=== PATIENT | male | born 1960 | race Hispanic/Latino ===

== ENCOUNTER 2017-04-11 23:00 | Observation (INO) | payer SELFPAY ==
[2017-04-11] MEDS ORDERED: Enoxaparin Sodium 100 MG/ML SYRINGE ONE (23:23)
[2017-04-11 23:39] LABS: #Basophils 0.1 thou/uL (0.0-0.2); #Eosinphils 0.3 thou/uL (0.0-0.7); #Lymphocytes 2.3 thou/uL (1.20-3.40); #Monocytes 0.6 thou/uL (0.11-0.59); #Neutrophils 4.8 thou/uL (1.40-6.50); %Basophils 0.8 % (0.0-1.0); %Eosinophils 3.4 % (0.0-10.0); %Lymphocytes 28.9 % (21.0-51.0); %Monocytes 7.8 % (0.0-10.0); Hematocrit 38.7 % (42.0-52.0); Mean Platelet Volume 6.9 fL (7.4-10.4); Red Blood Cell (RBC) Count 4.16 mill/uL (4.70-6.10)
[2017-04-12 00:03] LABS: ALT (SGPT) 17 U/L (8-55); AST (SGOT) 16 U/L (5-34); Alkaline Phosphatase 101 U/L (40-150); Anion Gap 14 mmol/L (10-20); BUN (Urea Nitrogen) 13 mg/dL (8.4-25.7); Bilirubin, Total 0.5 mg/dL (0.2-1.2); CK (CPK) 108 U/L (30-200); Calc. Creatinine Clearance 0 mL/min (70-130); Calcium 8.5 mg/dL (7.8-10.44); Carbon Dioxide 29 mmol/L (22-29); Chloride 102 mmol/L (98-107); Estimated GFR-MDRD 74; Globulin 3.1 g/dL (2.4-3.5)
[2017-04-12 00:05] LABS: Troponin I 0.013 ng/mL (< 0.028)
--- NOTE | 2017-04-12 00:52 | PDOC.EVN ---
Event Note - Event Note Event Note: [id number] H&P Dictated 1. AFIB New onset 2. HTN 3. Acute CHF PLAN: SEE ORDERS
[2017-04-12 01:20] VITALS: BMI 29.3
[2017-04-12 02:34] LABS: Troponin I 0.014 ng/mL (< 0.028)
[2017-04-12 05:31] LABS: Troponin I 0.024 ng/mL (< 0.028)
[2017-04-12] MEDS: Furosemide 40 MG/4 ML VIAL SLOW IVP SCH ×2 (05:47→14:26)
[2017-04-12] MEDS ORDERED: cloNIDine HCl 0.1 MG TAB PO SCH (08:00)
[2017-04-12] MEDS: Acetaminophen 500 MG TAB PO PRN (08:12)
--- NOTE | 2017-04-12 08:22 | HP ---
DATE OF ADMISSION: 04/12/2017 CHIEF COMPLAINT: Dyspnea. HISTORY OF PRESENT ILLNESS: Patient is a 57-year-old male with no significant past medical history, now came to the ER complaining of dyspnea. Patient is having dyspnea for the past 1 week with mini mal exertion, complains of bilateral lower extremity swelling. Denies any chest pain at present, bu t complaints of intermittent chest pain . Denies any radiation. Denies any fever, denies any chills, denies any nausea, denies any ordinary complaints of cough, denies any sputum production, de nies any dizziness, denies any diarrhea. PAST MEDICAL HISTORY: None. PAST SURGICAL HISTORY: None. SOCIAL HISTORY: Positive for smoking, denies alcohol, denies any drugs. FAMILY HISTORY: Denies any heart problems. REVIEW OF SYSTEMS: Constitutional: Denies any fever, denies any chills. Eyes: Denies any vision problems. Ears: Denies any hearing loss. Neck: Denies any neck pain. Cardiovascular System: Po sitive for chest pain. Respiratory System: Positive for cough. Cranial Nerve System: Denies sync ope, denies lightheadedness. Psychiatric: Denies anxiety. Integument: Denies any rash. Musculos keletal System: Positive for lower extremity edema. All other review of systems are reviewed and a re negative. PHYSICAL EXAMINATION: CONSTITUTIONAL/VITAL SIGNS: At the time of H\T\P performed, blood pressure is 140/65, afebrile, afe brile, pulse ox 97% on 2 liters. GENERAL: Patient appears comfortable. HEENT: Pupils are equal, round, and reactive. Anterior nares patent. Nose normal. Ears normal. Teeth intact. Tongue is moist. NECK: Supple, no JVD. CARDIOVASCULAR SYSTEM: S1, S2 present, irregular. No murmurs, no rubs, no gallops. RESPIRATORY SYSTEM: No wheezing, no rhonchi. Breath sounds bilaterally. Positive for crackles. GASTROINTESTINAL SYSTEM: Abdomen is soft, nontender, no guarding, no organomegaly, no masses felt. MUSCULOSKELETAL: Positive for edema. CRANIAL NERVE SYSTEM: Awake, follows commands. Speech clear. PSYCHIATRIC: Mood appropriate at this time. INTEGUMENT: No rashes seen. LABORATORY DATA: At the time of H\T\P performed, sodium 141, potassium 4.2, chloride 100, CO2 of 29 , BUN of 13, creatinine of 1.0, troponin 0.013, BNP 384. White count 8, hemoglobin 12.8, and platel et count 245. EKG: Positive for AFib. ASSESSMENT AND PLAN: The patient is 57-year-old male. 1. New onset atrial fibrillation. Plan to consult cardiology to evaluate the patient. Plan to cuate ck cardiac enzymes. Plan to monitor the patient closely. 2. Acute congestive heart failure exacerbation. Plan to check 2D echocardiogram. Plan to start th e patient on IV Lasix 40 mg b.i.d. We will monitor the patient. 3. Hypertension. Monitor blood pressure. Continue to monitor blood pressure and start blood press ure medications. 4. Nicotine abuse, counseling not to smoke. Case was discussed in detail with the patient and patient's also.
[2017-04-12] MEDS ORDERED: Aspirin 325 MG TAB PO SCH (09:00)
[2017-04-12] MEDS ORDERED: FLU VACC QS2017-18 36 mo. & older 0.5 ML SYRINGE IM ONE (09:00)
[2017-04-12] MEDS ORDERED: Metoprolol Tartrate 25 MG TAB PO SCH (09:00)
[2017-04-12 09:21] LABS: Hematocrit 41.8 % (42.0-52.0)
[2017-04-12] MEDS: Aspirin 81 mg Enteric Coated Tablet PO SCH (10:07)
[2017-04-12] MEDS: Enoxaparin Sodium 100 MG/ML SYRINGE SC SCH ×2 (10:18→19:33)
[2017-04-12] MEDS ORDERED: ALPRAZolam 0.25 MG TAB PO PRN (10:24)
--- NOTE | 2017-04-12 10:24 | PDOC.PN ---
- Subjective Encounter Start Date: 04/12/17 Encounter Start Time: 10:23 Subjective: reports feeling better. abdominal distension has much improved. -: no chest pain/SOB/leg swelling this morning - Objective MAR Reviewed: Yes Vital Signs & Weight: Vital Signs (12 hours) Temp Pulse Resp BP BP Pulse Ox 04/12/17 10:10 134/99 H 04/12/17 08:44 97.8 F 79 20 04/12/17 08:40 124/90 04/12/17 08:15 124/90 04/12/17 08:11 79 20 95 04/12/17 07:59 97.8 F 93 20 148/102 H 91 L 04/12/17 03:32 97.5 F L 102 H 21 H 146/95 H 92 L Weight Weight 216 lb 6.4 oz I&O: 04/11/17 04/12/17 04/13/17 06:59 06:59 06:59 Intake Total 364 Output Total 525 800 Balance -161 -800 Result Diagrams: 04/12/17 09:12 04/12/17 05:00 Additional Labs: Laboratory Tests 04/11/17 04/11/17 04/12/17 23:30 23:30 01:54 Troponin I 0.013 0.014 B-Natriuretic Peptide 384.7 H Triglycerides Cholesterol LDL Cholesterol, Calc HDL Cholesterol 04/12/17 04/12/17 05:00 05:00 Troponin I 0.024 B-Natriuretic Peptide Triglycerides 78 Cholesterol 140 LDL Cholesterol, Calc 88 HDL Cholesterol 36 Phys Exam - Physical Examination Constitutional: NAD HEENT: PERRLA, moist MMs, sclera anicteric, oral pharynx no lesions Neck: no nodes, no JVD, supple, full ROM Respiratory: no wheezing, no rales, no rhonchi, clear to auscultation bilateral Cardiovascular: no significant murmur, irregular Gastrointestinal: soft, non-tender, no distention, positive bowel sounds Musculoskeletal: no edema, pulses present Neurological: non-focal, normal sensation, moves all 4 limbs Psychiatric: normal affect, A&O x 3 Skin: no rash Dx/Plan (1) Acute CHF (congestive heart failure) Code(s): I50.9 - HEART FAILURE, UNSPECIFIED Status: Acute Qualifiers: Congestive heart failure type: unspecified congestive heart failure type Qualified Code(s): I50.9 - Heart failure, unspecified (2) New onset atrial fibrillation Code(s): I48.91 - UNSPECIFIED ATRIAL FIBRILLATION Status: Acute Comment: rate controlled (3) Tobacco abuse Code(s): Z72.0 - TOBACCO USE Status: Acute (4) Tobacco abuse counseling Code(s): Z71.6 - TOBACCO ABUSE COUNSELING Status: Chronic (5) HTN (hypertension) Code(s): I10 - ESSENTIAL (PRIMARY) HYPERTENSION Status: Acute Comment: Non complaint - Plan plan discussed w/ family, marriage and family social worker, out of bed/ambulate, DVT proph w/ lovenox Add BID lovenox for stroke prophylaxis.unknown cardiac status -: Add low dose BB for BP and HR control w parametrs. -: ECHO done ,results pending.cardiology to see later today -: cont diuresis. clinically better. monitor renal Fx. -: Add Nicotine patch * . Review of Systems - Review of Systems Constitutional: negative: Fever, Chills, Sweats, Weakness, Malaise, Other Respiratory: negative: Cough, Dry, Shortness of Breath, Hemoptysis, SOB with Excertion, Pleuritic Pain, Sputum, Wheezing Cardiovascular: negative: Chest Pain, Palpitations, Orthopnea, Paroxysmal Noc. Dyspnea, Edema, Light Headedness, Other Gastrointestinal: negative: Nausea, Vomiting, Abdominal Pain, Diarrhea, Constipation, Melena, Hematochezia, Other Genitourinary: negative: Dysuria, Frequency, Incontinence, Hematuria, Retention , Other Musculoskeletal: negative: Neck Pain, Shoulder Pain, Arm Pain, Back Pain, Hand Pain, Leg Pain, Foot Pain, Other Neurological: negative: Weakness, Numbness, Incoordination, Change in Speech, Confusion, Seizures, Other - Medications/Allergies Allergies/Adverse Reactions: Allergies Allergy/AdvReac Type Severity Reaction Status Date / Time bee pollen Allergy Verified 04/12/17 00:51 Medications: Current Medications Acetaminophen (Tylenol) 500 mg PO Q6H PRN PRN Reason: Headache/Fever or Pain Last Admin: 04/12/17 08:12 Dose: 500 mg Albuterol/Ipratropium (Duoneb) 3 ml NEB Q6H PRN PRN Reason: SOB &/or Wheezing Last Admin: 04/12/17 08:11 Dose: 3 ml Aspirin (Ecotrin) 81 mg PO DAILY [facility] Last Admin: 04/12/17 10:07 Dose: Not Given Enoxaparin Sodium (Lovenox) 100 mg SC 0900,2100 [facility] Last Admin: 04/12/17 10:18 Dose: 100 mg Furosemide (Lasix) 40 mg SLOW IVP 0600,1400 [facility] Last Admin: 04/12/17 05:47 Dose: 40 mg Metoprolol Tartrate (Lopressor) 12.5 mg PO BID [facility] Last Admin: 04/12/17 10:07 Dose: 12.5 mg
[2017-04-12] MEDS: Nicotine 14 MG PATCH TD SCH (11:39)
[2017-04-12] MEDS ORDERED: Digoxin 0.5 MG/2 ML AMP SLOW IVP SCH ×2 (12:45→19:00)
[2017-04-12] MEDS ORDERED: Sotalol HCl 80 MG TAB PO SCH ×2 (13:15→21:00)
--- NOTE | 2017-04-12 13:57 | EKG ---
Test Reason : AFIB Blood Pressure : / mmHG Vent. Rate : 101 BPM Atrial Rate : 107 BPM P-R Int : 000 ms QRS Dur : 084 ms QT Int : 374 ms P-R-T Axes : 000 038 068 degrees QTc Int : 484 ms Atrial fibrillation with rapid ventricular response Left ventricular hypertrophy Abnormal ECG Confirmed by JOHAN ORTEGA, CAMI Chen ([id number]), video editor DARRICK BRANDT ([id number]) on 04/12/2017 1:57:02 PM Referred By: Confirmed By:CAMI PRADO MD
--- NOTE | 2017-04-12 17:29 | CON ---
CARDIOLOGY CONSULTATION NOTE DATE OF CONSULTATION: 04/12/2017 INDICATION FOR CONSULTATION: A 57-year-old patient with new onset atrial fibrillation. HISTORY OF PRESENT ILLNESS: This is a 57-year-old gentleman who has had no previous significant car diac history except for some hypertension, noncompliance with medications and followup, presented to the emergency room complaining of shortness of breath for the last week or so, he noticed he has be en having lower extremity edema and shortness of breath. He has been having palpitations for at [facility] a year. He has not recently seen a physician. He had no significant chest discomfort. He had s ome abdominal fullness, but no significant chest pain was noted, mainly with the shortness of breath . He had no pulmonary or complaints, significant GI complaints that would be possible reflux. O therwise, he was doing quite well, but was concerned about the shortness of breath and lower extremi ty edema and the palpitations. In the emergency room, he was found to be in atrial fibrillation wit h rapid ventricular response. He was given aspirin, Lopressor, Lasix and Lovenox and we were asked to see him for the atrial fibrillation. PAST MEDICAL AND SURGICAL HISTORY: Unremarkable for any significant operations or illnesses. SOCIAL HISTORY: He continues to smoke a pack a day for 40-45 years and has continued to smoke until he was admitted. He has no alcohol use or illicit drug use. ALLERGIES: He is allergic to BEESTINGS. MEDICATIONS: At this time include metoprolol 12.5 mg b.i.d., aspirin 325 mg a day, Lovenox, Lasix 4 0 mg b.i.d. and Nicoderm patch. He had been on Norvasc, lisinopril and hydrochlorothiazide. He has had stopped taking his medications because he did not feel well. REVIEW OF SYSTEMS: Constitutional: He denied any chest pain. He does have shortness of breath. H EENT: He had no new HEENT complaints such as visual changes, hearing loss or tinnitus. Pulmonary: He had no other pulmonary complaints. He continued to smoke until admission. He denies any signif icant chest discomfort. He has had no coughing. Gastrointestinal: He has had no GI complaints suc h as nausea, vomiting or diarrhea. Genitourinary: He does have urinary hesitancy and frequent urin ation at night and most likely he has some degree of benign prostatic hypertrophy. He has had no si gnificant complaints from his musculoskeletal except for recently the lower extremity edema. Neurol ogic: No history of seizures or syncope. FAMILY HISTORY: Unremarkable for any early heart disease. PHYSICAL EXAMINATION: GENERAL: Reveals a well-developed and well-nourished gentleman. VITAL SIGNS: Blood pressure 137/93, heart rate is anywhere between 94-120 and respiratory rate is 2 0. He is afebrile. HEENT: Shows head to be normocephalic and atraumatic. Carotid pulses are present. There were no b ruits. There is no JVD. The thyroid is not enlarged. Oral mucosa is pink and moist. CHEST: Clear to auscultation, but he did have decreased breath sounds throughout. I did not hear a ny rales, rhonchi or wheezing. CARDIOVASCULAR: Exam reveals a regular rhythm with somewhat rapid. There were no significant murmu rs, heaves, thrills, bruits or rubs. ABDOMEN: Soft and nontender with positive bowel sounds. No organomegaly or masses are noted. Femo ral pulses are present. EXTREMITIES: Showed no clubbing or cyanosis. He did have mild right ankle edema, otherwise he has no significant problems. He does have normal pulses. NEUROLOGIC: The patient appears to be intact. SKIN: Warm and dry at this time. LABORATORY AND IMAGING DATA: Shows a creatinine of 1.03 and potassium of 4.2. His BNP was 384. Ca rdiac enzymes are negative. LDH was 88. Hemoglobin 12.8. His EKG shows atrial fibrillation with n o acute changes to indicate ischemia. His heart rate is 101 beats per minute on the EKG when he arr ived in the emergency room. At this time, he continues to have atrial fibrillation. He has had an echocardiogram performed, which shows an ejection fraction 50% to 55% with mild left ventricular hyp ertrophy, mild tricuspid and mitral valve regurgitation. IMPRESSION AND PLAN: 1. Atrial fibrillation, possibly new onset, but uncertain of the duration of the onset of the atria l fibrillation with rapid ventricular response, which apparently has caused him to have congestive h eart failure symptoms. His CHADS2 score is 0-1, relatively low and most likely he will do well aspi rin without any other oral anticoagulation. At this time, we will try to slow the heart rate down f urther. He has been given beta-blockers, but we will also add digoxin to slow the heart rate down. We will need to consider antiarrhythmic medications that may convert him back to sinus rhythm. Mos t likely, he is at low risk for having a cerebrovascular accident and would try him on medications i n order to convert him back to sinus rhythm. If we are unsuccessful, then we will continue to treat him with aspirin and then we will attempt an electrical cardioversion. If he does not convert to s inus rhythm, we cannot control the heart rate. At some point in time, it would be advisable to unde rgo stress testing to definitely rule out evidence of underlying coronary artery disease as the poss ible etiology of the atrial fibrillation. Otherwise, we do not have any reason or indication for hi s onset of atrial fibrillation in this 57-year-old, otherwise relatively healthy gentleman except fo r his history of tobacco abuse. 2. History of tobacco abuse. He has been strongly encouraged to stop smoking and nicotine patch at this time and he says that he will stop smoking. We will try all means to stop smoking. 3. History of hypertension. We will try to encourage him to take his medications to correct his hy pertension. At this time, he appears to be stable. We will be more than happy to continue to follo w the patient with you and will most likely start antiarrhythmic medications.
[2017-04-12] MEDS: Digoxin 0.5 MG/2 ML AMP SLOW IVP SCH (19:30)
[2017-04-12] MEDS: Sotalol HCl 80 MG TAB PO SCH (19:32)
[2017-04-13] MEDS: Acetaminophen 500 MG TAB PO PRN (00:13)
[2017-04-13] MEDS: Digoxin 0.5 MG/2 ML AMP SLOW IVP SCH (01:22)
[2017-04-13 04:18] LABS: #Eosinphils 0.3 thou/uL (0.0-0.7); #Lymphocytes 2.7 thou/uL (1.20-3.40); #Monocytes 0.7 thou/uL (0.11-0.59); #Neutrophils 4.8 thou/uL (1.40-6.50); %Basophils 0.5 % (0.0-1.0); %Lymphocytes 31.3 % (21.0-51.0); %Monocytes 8.1 % (0.0-10.0); Mean Platelet Volume 7.1 fL (7.4-10.4); Red Blood Cell (RBC) Count 4.54 mill/uL (4.70-6.10); White Blood Cell (WBC) Count 8.6 thou/uL (4.8-10.8)
[2017-04-13 04:43] LABS: Anion Gap 13 mmol/L (10-20); BUN (Urea Nitrogen) 17 mg/dL (8.4-25.7); Calc. Creatinine Clearance 119 mL/min (70-130); Calcium 8.5 mg/dL (7.8-10.44); Carbon Dioxide 30 mmol/L (22-29); Chloride 99 mmol/L (98-107); Estimated GFR-MDRD 84
[2017-04-13] MEDS: Furosemide 40 MG/4 ML VIAL SLOW IVP SCH ×2 (06:14→13:52)
[2017-04-13] MEDS: Sotalol HCl 80 MG TAB PO SCH ×2 (08:46→20:35)
[2017-04-13] MEDS: Digoxin 0.25 MG TAB PO SCH (08:46)
[2017-04-13] MEDS: Aspirin 81 mg Enteric Coated Tablet PO SCH (08:46)
[2017-04-13] MEDS: Enoxaparin Sodium 100 MG/ML SYRINGE SC SCH ×2 (08:47→20:36)
--- NOTE | 2017-04-13 09:31 | PDOC.CTH ---
<Agata Arroyo - Last Filed: 04/13/17 10:15> Cardiology Progress Note - Subjective The pt was seen and evaluated. No overnight events. No cardiac complaints. O2 sat with RM was 91-92%. The pt reported he still sometimes felt palpitation with walking - Objective Vital Signs Temp Pulse Resp BP BP Pulse Ox 04/13/17 08:46 87 166/107 H 04/13/17 07:25 97.8 F 87 20 166/107 H 91 L 04/13/17 07:20 97.8 F 86 20 04/13/17 03:20 97.8 F 86 20 161/99 H 92 L 04/13/17 01:22 94 04/13/17 00:15 95 20 144/89 H 91 L Weight 213 lb 14.4 oz 04/12/17 04/13/17 04/14/17 06:59 06:59 06:59 Intake Total 364 806 300 Output Total 525 3150 Balance -161 -2344 300 - Physical Examination General/Neuro: alert & oriented x3 Neck: no JVD present Lungs: CTA, other: (diminished at bases) Heart: other: (irregular) Abdomen: soft Extremities: other: (No edemas) - Telemetry Telemetry Rhythm: Afib 90-100s - Labs Result Diagrams: 04/13/17 03:52 04/13/17 03:51 Troponin/CKMB CK-MB (CK-2) 2.4 ng/mL (0-6.6) 04/11/17 23:30 Troponin I 0.024 ng/mL (< 0.028) 04/12/17 05:00 - Assessment/Plan 1. New onset atrial fibrillation with RVR - Rate relatively controlled with Sotalol 80mg BID, Digoxin 0.25mg PO Daily, ASA 81mg, and Lovenox BID; 2. HTN - Start Lisinopril 10mg daily 3. Acute CHF - Stable with Lasix 40mg IV BID; BNP was 385 yesterday; Echo on 01/20 showed EF 50-55%, normal Bilat. Atrium with mild MR 4. Tobacco abuse - on Nicotine patch; Smoking cessation education given; The pt stated he really wants to stop smoking MAR Reviewed * Plan to [facility] and [facility] on 04/14/[address] Mesa Review of Systems - Review of Systems Constitutional: reports: no symptoms reported EENTM: reports: no symptoms reported Respiratory: reports: no symptoms reported Cardiac (ROS): reports: see HPI ABD/GI: reports: no symptoms reported : reports: no symptoms reported Musculoskeletal: reports: no symptoms reported <Clare Mesa - Last Filed: 04/13/17 18:22> Cardiology Progress Note - Objective Vital Signs Temp Pulse Resp BP BP Pulse Ox 04/13/17 15:08 98.5 F 93 20 151/83 H 92 L 04/13/17 11:10 97.2 F L 57 L 20 138/100 H 92 L 04/13/17 08:46 87 166/107 H 04/13/17 07:25 97.8 F 87 20 166/107 H 91 L 04/13/17 07:20 97.8 F 86 20 Weight 213 lb 14.4 oz 04/12/17 04/13/17 04/14/17 06:59 06:59 06:59 Intake Total 364 806 904 Output Total 525 3150 2800 Balance -382 -3661 -4446 - Labs Result Diagrams: 04/13/17 03:52 04/13/17 03:51 Troponin/CKMB CK-MB (CK-2) 2.4 ng/mL (0-6.6) 04/11/17 23:30 Troponin I 0.024 ng/mL (< 0.028) 04/12/17 05:00 - Assessment/Plan Pt. seen and eval. He remains in atrial fibrillation. I discussed electrical cardioversion with him and plan to proceed in AM. I agree with the A/P by the [employer].
--- NOTE | 2017-04-13 09:55 | PDOC.PN ---
- Subjective Encounter Start Date: 04/13/17 Encounter Start Time: 09:53 Subjective: feels much better. no chest pain/SOB/plapitations. -: no F/C.no weakness/dizziness - Objective MAR Reviewed: Yes Vital Signs & Weight: Vital Signs (12 hours) Temp Pulse Resp BP BP Pulse Ox 04/13/17 08:46 87 166/107 H 04/13/17 07:25 97.8 F 87 20 166/107 H 91 L 04/13/17 07:20 97.8 F 86 20 04/13/17 03:20 97.8 F 86 20 161/99 H 92 L 04/13/17 01:22 94 04/13/17 00:15 95 20 144/89 H 91 L Weight Weight 213 lb 14.4 oz I&O: 04/12/17 04/13/17 04/14/17 06:59 06:59 06:59 Intake Total 364 806 300 Output Total 525 3150 Balance -161 -2344 300 Result Diagrams: 04/13/17 03:52 04/13/17 03:51 Radiology Reviewed by me: Yes (ECHO- NL EF. no significant valvular abnormality) EKG Reviewed by me: Yes (A-fib) Phys Exam - Physical Examination Constitutional: NAD HEENT: PERRLA, moist MMs, sclera anicteric, oral pharynx no lesions Neck: no nodes, no JVD, supple, full ROM Respiratory: no wheezing, no rales, no rhonchi, clear to auscultation bilateral Cardiovascular: no significant murmur, irregular Gastrointestinal: soft, non-tender, no distention, positive bowel sounds Musculoskeletal: no edema, pulses present Neurological: non-focal, normal sensation, moves all 4 limbs Psychiatric: normal affect, A&O x 3 Skin: no rash Dx/Plan (1) Acute CHF (congestive heart failure) Code(s): I50.9 - HEART FAILURE, UNSPECIFIED Status: Acute Qualifiers: Congestive heart failure type: unspecified congestive heart failure type Qualified Code(s): I50.9 - Heart failure, unspecified (2) New onset atrial fibrillation Code(s): I48.91 - UNSPECIFIED ATRIAL FIBRILLATION Status: Acute Comment: rate controlled (3) Tobacco abuse Code(s): Z72.0 - TOBACCO USE Status: Acute (4) Tobacco abuse counseling Code(s): Z71.6 - TOBACCO ABUSE COUNSELING Status: Chronic (5) HTN (hypertension) Code(s): I10 - ESSENTIAL (PRIMARY) HYPERTENSION Status: Acute Comment: Non complaint - Plan out of bed/ambulate, DVT proph w/lovenox HR controlled.started on Digoxin and Sotalol by Cardiology -: still in A-fib. may need cardioversion.will defer to Cardiology. -: Cont Lovenox BID. Low CHADS-Vasc score.May just get by on ASA -: BP still high.Lisinopril added this am.monitor -: am labs.hemodynamically stable.Nicotine patch ordered * . Review of Systems - Review of Systems Constitutional: negative: Fever, Chills, Sweats, Weakness, Malaise, Other Respiratory: negative: Cough, Dry, Shortness of Breath, Hemoptysis, SOB with Excertion, Pleuritic Pain, Sputum, Wheezing Cardiovascular: negative: Chest Pain, Palpitations, Orthopnea, Paroxysmal Noc. Dyspnea, Edema, Light Headedness, Other Gastrointestinal: negative: Nausea, Vomiting, Abdominal Pain, Diarrhea, Constipation, Melena, Hematochezia, Other Genitourinary: negative: Dysuria, Frequency, Incontinence, Hematuria, Retention , Other Musculoskeletal: negative: Neck Pain, Shoulder Pain, Arm Pain, Back Pain, Hand Pain, Leg Pain, Foot Pain, Other Neurological: negative: Weakness, Numbness, Incoordination, Change in Speech, Confusion, Seizures, Other - Medications/Allergies Allergies/Adverse Reactions: Allergies Allergy/AdvReac Type Severity Reaction Status Date / Time bee pollen Allergy Verified 04/12/17 00:51 Medications: Current Medications Acetaminophen (Tylenol) 500 mg PO Q6H PRN PRN Reason: Headache/Fever or Pain Last Admin: 04/13/17 00:13 Dose: 500 mg Albuterol/Ipratropium (Duoneb) 3 ml NEB Q6H PRN PRN Reason: SOB &/or Wheezing Last Admin: 04/12/17 08:11 Dose: 3 ml Alprazolam (Xanax) 0.25 mg PO BIDPRN PRN PRN Reason: Anxiety Last Admin: 04/12/17 11:40 Dose: 0.25 mg Aspirin (Ecotrin) 81 mg PO DAILY [facility] Last Admin: 04/13/17 08:46 Dose: 81 mg Digoxin (Lanoxin) 0.25 mg PO QAM REPLACED BY [facility] Last Admin: 04/13/17 08:46 Dose: 0.25 mg Enoxaparin Sodium (Lovenox) 100 mg SC 0900,2100 REPLACED BY [facility] Last Admin: 04/13/17 08:47 Dose: 100 mg Furosemide (Lasix) 40 mg SLOW IVP 0600,1400 [facility]PL[facility]ED [facility] Last Admin: 04/13/17 06:14 Dose: 40 mg Lisinopril (Zestril) 10 mg PO DAILY REPLACED BY [facility] Miscellaneous Information (Communication Order-Pharmacy) 0 each FS ONE REPLACED BY [facility] Nicotine (Nicoderm Patch) 14 mg TD Q24HR REPLACED BY [facility] Last Admin: 04/12/17 11:39 Dose: 14 mg Sotalol HCl (Betapace) 80 mg PO BID REPL[facility]ED BY [facility] Last Admin: 04/13/17 08:46 Dose: 80 mg
[2017-04-13] MEDS ORDERED: Communication Order-Pharmacy FS SCH (10:00)
[2017-04-13] MEDS: Nicotine 14 MG PATCH TD SCH (11:36)
[2017-04-14 04:37] LABS: Anion Gap 14 mmol/L (10-20); BUN (Urea Nitrogen) 15 mg/dL (8.4-25.7); Calc. Creatinine Clearance 127 mL/min (70-130); Calcium 9.1 mg/dL (7.8-10.44); Carbon Dioxide 30 mmol/L (22-29); Chloride 99 mmol/L (98-107); Estimated GFR-MDRD Greater than 90
[2017-04-14] MEDS: Digoxin 0.25 MG TAB PO SCH (06:38)
[2017-04-14] MEDS: Aspirin 81 mg Enteric Coated Tablet PO SCH (06:39)
[2017-04-14] MEDS: Sotalol HCl 80 MG TAB PO SCH (06:39)
[2017-04-14] MEDS ORDERED: Diprivan 40 ML ONE (07:37)
[2017-04-14] MEDS ORDERED: Propofol 200 MG/20 ML VIAL ONE (08:08)
[2017-04-14] MEDS ORDERED: Ondansetron HCl/PF 4 MG/2 ML Vial IVP PRN (08:37)
[2017-04-14] MEDS ORDERED: Promethazine HCl 25 MG/ML VIAL SLOW IVP PRN (08:37)
[2017-04-14] MEDS ORDERED: Lisinopril 10 MG TAB PO SCH (09:00)
[2017-04-14] MEDS ORDERED: Furosemide 40 MG/4 ML VIAL SLOW IVP SCH (09:00)
--- NOTE | 2017-04-14 09:15 | PDOC.PN ---
- Subjective Encounter Start Date: 04/14/17 Encounter Start Time: 09:13 Pt seen and examined, chart reviewed in its entirety. This is my first visit with this patient No CP, or SOB, no N/V/D/C Pt just back form DC cardioversion, successful. no acute events overnight, no new complaints, denies needs 10 point ROS performed and neg for all systems except as above - Objective Resuscitation Status: full MAR Reviewed: Yes Vital Signs & Weight: Vital Signs (12 hours) Temp Pulse Resp BP Pulse Ox 04/14/17 09:00 98.1 F 74 18 128/81 98 04/14/17 07:27 98.1 F 80 18 04/14/17 06:39 80 135/96 H 04/14/17 06:38 80 135/96 H 04/14/17 04:00 80 04/14/17 03:55 80 18 135/96 H 94 L Weight Weight 204 lb 6.4 oz I&O: 04/13/17 04/14/17 04/15/17 06:59 06:59 06:59 Intake Total 806 904 Output Total 3150 2800 1000 Balance -2344 -1896 -1000 Result Diagrams: 04/13/17 03:52 04/14/17 03:46 Radiology Reviewed by me: Yes EKG Reviewed by me: Yes (Afib, now in NSR) Phys Exam - Physical Examination Constitutional: NAD HEENT: PERRLA, moist MMs, sclera anicteric, oral pharynx no lesions Neck: no nodes, no JVD, supple, full ROM Respiratory: no wheezing, no rales, no rhonchi, clear to auscultation bilateral Cardiovascular: RRR, no significant murmur, no rub Gastrointestinal: soft, non-tender, no distention, positive bowel sounds Musculoskeletal: no edema, pulses present Neurological: non-focal, normal sensation, moves all 4 limbs Lymphatic: no nodes Psychiatric: normal affect, A&O x 3 Skin: no rash, normal turgor, cap refill <2 seconds Dx/Plan (1) Acute CHF (congestive heart failure) Code(s): I50.9 - HEART FAILURE, UNSPECIFIED Status: Acute Qualifiers: Congestive heart failure type: systolic Qualified Code(s): I50.21 - Acute systolic (congestive) heart failure Comment: due to new onset Afib (2) HTN (hypertension) Code(s): I10 - ESSENTIAL (PRIMARY) HYPERTENSION Status: Chronic Qualifiers: Hypertension type: essential hypertension Qualified Code(s): I10 - Essential (primary) hypertension Comment: Non complaint (3) New onset atrial fibrillation Code(s): I48.91 - UNSPECIFIED ATRIAL FIBRILLATION Status: Acute Comment: in NSR after cardioversion, considered paroxysmal Afib (4) Tobacco abuse Code(s): Z72.0 - TOBACCO USE Status: Chronic - Plan cont current plan of care, PT/OT * . will follow up on cardiology recommendations regarding plan and timing of discharge - Discharge Day Patient offered the following for tobacco cessation: pharmacological Rx, nicotine replacement, behavioral therapy referr
[2017-04-14 09:25] LABS: Hematocrit 46.6 % (42.0-52.0)
[2017-04-14] MEDS: Nicotine 14 MG PATCH TD SCH (12:17)
[2017-04-14 13:06] VITALS: BP 155/61; TEMP 98.2
--- NOTE | 2017-04-14 15:01 | DIS ---
DATE OF ADMISSION: 04/12/2017 DATE OF DISCHARGE: 04/14/2017 DISCHARGE DIAGNOSES: 1. New onset atrial fibrillation. 2. Acute systolic congestive heart failure secondary to atrial fibrillation. 3. Hypertension. 4. Tobacco abuse. CONSULTATIONS: Cardiology, Dr. Mesa. PROCEDURES: DC cardioversion on 04/14/2017. HISTORY AND PHYSICAL: Mr. 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 He was found to be in atrial fibrillation with RVR and acute heart failure, was subsequently admitted and started on diuretics. Cardiology was consulted and saw him on 04/12/2017, recommend digoxin, and further monitoring with the possibility of DC cardioversion if he continued to be in atrial fibrillation. On 04/13/2017, the patient continued to be in atrial fibrillation despite digoxin and attempts to rate control. He was urinating well and responded well to diuresis with decreased edema. All felt secondary to decreased efficiency of the heart from his atrial fibrillation. Rate did stay controlled. On 2016, he was stable, was taken to the EP lab and underwent DC cardioversion in normal sinus rhythm. He remained in normal sinus rhythm through the day and was discharged home on sotalol and aspirin and discharge regular medications with outpatient followup. PHYSICAL EXAMINATION: The patient was seen and examined on the date of discharge. DISCHARGE PLAN AND DISPOSITION: Were discussed with the patient face to face at the bedside. DISCHARGE MEDICATIONS: 1. Sotalol 80 mg p.o. b.i.d. Prescription sent for one month with 2 refills. 2. Aspirin 81 mg daily, prescription sent for 30 days with 2 refills. 3. Amlodipine 2.5 mg daily. 4. Monopril 10 mg daily. 5. HCT 12.5 mg daily. 6. Alleve p.r.n. FOLLOWUP APPOINTMENTS: 1. Primary care physician in [address] Mesa in 2-3 weeks. DISPOSITION: The patient is being discharged home via private vehicle. ODILON
--- NOTE | 2017-04-14 15:34 | ECHO ---
TRNASESOPHAGEAL ECHOCARDIOGRAM: INDICATION FOR PROCEDURE: A 57-year-old patient with atrial fibrillation, general medical management with betapace. Has not y et converted to sinus rhythm. He was advised to undergo a transesophageal echocardiogram as well as cardioversion. PROCEDURE: He was taken to the recovery area where he underwent short-acting propofol. The transesophageal pro be was easily passed down the distal esophagus. This did not show any evidence of left atrial or le ft atrial appendage thrombus. He did have smoke formation in left atrium; however, ejection fractio n was 45-50%. He had mild MR and TR and trace aortic valve regurgitation. Using one attempt at 250 joules, he was successfully converted back to normal sinus rhythm with a heart rate in the 70s with out any difficulties or complications. POS: BHAKTI
== END 2017-04-14 13:21 | disposition home or self-care (01) ==
LOC: ERS 23:00 → 2SW 04-12 00:39
PROVIDERS: ADMIT Internal Medicine; ATTEND Internal Medicine
DX: I48.0 Paroxysmal atrial fibrillation (principal); I11.0 Hypertensive heart disease with heart failure; I50.9 Heart failure, unspecified; F17.200 Nicotine dependence, unspecified, uncomplicated; Z91.030 Bee allergy status; Z79.82 Long term (current) use of aspirin; Z79.899 Other long term (current) drug therapy
CPT/HCPCS: 36415; 80048; 80053; 80061; 82550; 82553; 82565; 83880; 84484; 85014; 85018; 85025; 85049; 92960; 93005; 93306; 93312; 93798; 94640; 94760; 96372; 96374; 96375; 96376; G0378; J1160; J1650; J1940; J2704; J7620